=== PATIENT | male | born 1950 | race Caucasian/White ===

== ENCOUNTER 2018-09-07 15:20 | Emergency (ER) | payer MEDICARE, OTHER ==
[~2018-09-07] VITALS: Ht 172.7 cm; Wt 86.4 kg
[~2018-09-07 15:20] MED LIST: ADVAIR IH; ASPIRIN E.C. 8181 MG PO; BACLOFEN20 MG PO; BUDESONIDE1 POW; BUFFERED ASPIR325 M1 PO; CALAN SR240 MG PO; CARDIZEM CD 24240 MG PO; CARDURA8 MG PO; COMBIVENT INH14.7 GM IH; DOXAZOCIN PO; DOXAZOSIN4 MG PO; DUONEB 3 MG/3 ML3 ML IH; FORTAMET1000 MG PO; GABAPENTIN300 M1 PO; LISINOPRIL10 MG PO; MORPHINE SULFAT30 M5 PO; NEURONTIN300 MG PO; NYSTATIN100000 U/M PO; PERCODAN 325 MG1 TA1 PO; PLAVIX 75MG TAB75 MG PO; PRAVASTATIN20 MG PO; SINGULAIR10 MG PO; SPIRIVA18 MCG IH; TOPROL XL 50MG50 MG PO; VERAPAMIL240 MG PO; ZESTRIL20 MG PO; ZOCOR80 MG PO; ZOLOFT50 MG PO
[2018-09-07 15:30] VITALS: TEMP 98
[2018-09-07] MEDS ORDERED: DOXYCYCLINE 10100 MG PO (17:32)
[2018-09-07] MEDS ORDERED: PREDNISONE20 MG PO (17:35)
[2018-09-07 17:51] LABS: BASO % 0.3 % (0.0-2.0); EOS # 0.2 (0.0-0.7); EOS % 2.3 % (0-4.0); GRAN # 7.2 (1.4-6.5); GRAN % 80.2 % (42.2-75.2); HEMOGLOBIN 12.2 g/dl (13.5-18.0); LYMPH # 1.1 (1.2-3.4); LYMPH % 12.7 % (20.0-51.0); MEAN CELL VOLUME 89 fl (80.0-100.0); MEAN CORPUSCULAR HEMOGLOBIN 30 pg (27.0-31.0); MEAN CORPUSCULAR HGB CONC 33 g/dl (33.0-37.0); MEAN PLATELET VOLUME 8.8 fl (7.4-10.4); MONO # 0.4 (0.1-0.6); MONO % 3.9 % (1.7-9.3); PLATELET COUNT 272 K/mm3 (130-400); RED BLOOD COUNT 4.11 M/mm3 (4.20-5.60); REDCELL DISTRIBUTION WIDTH-CV 12.8 % (11.5-14.5)
[2018-09-07 17:54] LABS: ALBUMIN 3.8 gm/dL (3.5-5.0); BILIRUBIN,TOTAL 0.4 mg/dL (0.0-1.0); CALCIUM 8.9 mg/dL (8.4-10.2); CREATININE, serum 0.64 (0.66-1.25); POTASSIUM 3.5 mmol/L (3.4-5.0); TOTAL PROTEIN 7.9 gm/dL (6.4-8.2)
[2018-09-07 18:24] VITALS: BP 168/83; PULSE 62
[2018-09-07 18:25] LABS: HEMATOCRIT 36.5 % (42.0-52.0)
[2018-09-07 18:26] LABS: ERYTHROCYTE SEDIMENTATION RATE 40 mm/hr (0-30)
== END 2018-09-07 18:25 | disposition home or self-care (01) ==
LOC: COL.ER 15:20
PROVIDERS: Family Medicine
DX: T49.6X5A Adverse effect of otorhinolaryngological drugs and preparations, initial encounter (principal); J44.9 Chronic obstructive pulmonary disease, unspecified; J32.0 Chronic maxillary sinusitis; R51 Headache
CPT/HCPCS: J7512